=== PATIENT | male | born 1940 | race Caucasian/White ===

== ENCOUNTER 2022-10-15 06:00 | Day surgery (SDC) | payer OTHER ==
[~2022-10-15] VITALS: Ht 167.6 cm; Wt 77.1 kg
[2022-10-15] MEDS ORDERED: MEPERIDINE HCL/PF 25 MG/ML DISP.SYRIN ONE (08:09)
[2022-10-15] MEDS ORDERED: MIDAZOLAM HCL 5 MG/5 ML VIAL ONE (08:10)
[2022-10-15] MEDS ORDERED: SIMETHICONE 40 MG/0.6 ML ML ONE (08:31)
[2022-10-15 13:46] VITALS: BP_SYST 85
== END 2022-10-15 10:14 | disposition home or self-care (01) ==
LOC: SOR 06:00 → SMU 06:00 → SOR 10:14
PROVIDERS: ATTEND Internal Medicine Gastroenterology
DX: Z12.11 Encounter for screening for malignant neoplasm of colon (principal); D12.0 Benign neoplasm of cecum; D12.4 Benign neoplasm of descending colon; Z86.010 Personal history of colon polyps; K57.30 Diverticulosis of large intestine without perforation or abscess without bleeding; K64.8 Other hemorrhoids; I25.10 Atherosclerotic heart disease of native coronary artery without angina pectoris; Z85.118 Personal history of other malignant neoplasm of bronchus and lung; E78.5 Hyperlipidemia, unspecified; I50.9 Heart failure, unspecified; Z87.891 Personal history of nicotine dependence; Z95.0 Presence of cardiac pacemaker; Z79.01 Long term (current) use of anticoagulants; Z79.899 Other long term (current) drug therapy; Z20.822 Contact with and (suspected) exposure to COVID-19
CPT/HCPCS: 45385; 45380; 87426; 36415; 88305; 99152; G0378; J2250; J2175